=== PATIENT | female | born 1960 | race Caucasian/White ===

== ENCOUNTER 2016-09-21 09:54 | Emergency (ER) | payer BC ==
[~2016-09-21] VITALS: Ht 154.9 cm; Wt 77.0 kg
[~2016-09-21 09:54] MED LIST: ASPIRIN EC81 MG PO; CIPROFLOXACN500 MG PO; LISINOPRIL/HYDR1 TA1 PO; SIMVASTATIN40 MG PO
[2016-09-21] MEDS ORDERED: ULTRAM50 M1 PO (11:01)
[2016-09-21 11:04] VITALS: BP 109/74
== END 2016-09-21 11:16 | disposition home or self-care (01) | DRG 605 ==
LOC: ED 09:54
DX: S20.211A Contusion of right front wall of thorax, initial encounter (principal); I10 Essential (primary) hypertension; E11.9 Type 2 diabetes mellitus without complications; E78.00 Pure hypercholesterolemia, unspecified; X50.0XXA Overexertion from strenuous movement or load, initial encounter

== ENCOUNTER 2024-05-21 23:10 | Emergency (ER) | payer MEDICARE ==
[~2024-05-21] VITALS: Ht 154.9 cm; Wt 81.6 kg
[~2024-05-21 23:10] MED LIST changes: +PREDNISONE20 MG PO; +ULTRAM50 M1 PO
[2024-05-21] MEDS ORDERED: SODIUM CHLORIDE 0.9% 1,000 ML IV STA (23:38)
[2024-05-21] MEDS ORDERED: TAMSULOSIN HCL 0.4 MG CAP PO STA (23:38)
[2024-05-21] MEDS ORDERED: MORPHINE SULFATE 4 MG/ML VIAL IV STA (23:38)
[2024-05-21 23:40] VITALS: BP 189/107
[2024-05-21] MEDS ORDERED: PROMETHAZINE HCL 25 MG/ML AMP IV ONE (23:40)
[2024-05-21] MEDS ORDERED: KETOROLAC TROMETHAMINE 30 MG/ML SDV IV ONE (23:40)
[2024-05-22 00:01] VITALS: BP 163/93
[2024-05-22 00:19] LABS: BASO% 0.3 % (0-3); EOS% 0.3 % (0-8); HEMATOCRIT 38.7 % (37.0-47.0); HEMOGLOBIN 12.9 g/dl (12.0-16.0); IMMATURE GRANULOCYTES 0.2 % (0.0-5.0); LYMPH% 9.9 % (15-41); MEAN CORPUSCULAR HGB 29.3 pG CALC (26.0-32.0); MEAN CORPUSCULAR HGB CONC 33.3 g/dL CAL (32.0-36.0); MONO% 7.6 % (2-13); NEUT# 10.34 thou/uL (2.00-7.15); NEUT% 81.7 % (42-76); RED BLOOD COUNT 4.4 mill/uL (4.20-5.60)
[2024-05-22 00:27] LABS: URINE BILIRUBIN - DIPSTICK Negative (NEGATIVE); URINE BLOOD DIPSTICK Negative (NEGATIVE); URINE GLUCOSE - DIPSTICK Negative (NEGATIVE); URINE KETONE Trace mg/dL (NEGATIVE); URINE LEUK ESTERASE Negative (NEGATIVE); URINE NITRITE - DIPSTICK Negative (Negative); URINE PROTEIN - DIPSTICK Negative (NEG-TRACE); URINE SPECIFIC GRAVITY >=1.030
[2024-05-22 00:28] LABS: URINE COLOR Yellow
[2024-05-22 00:31] LABS: BILIRUBIN, TOTAL 0.9 mg/dL (0.02-1.3); CREATININE 0.8 mg/dL (0.5-1.0); POTASSIUM 3.8 mmol/l (3.5-5.1)
[2024-05-22 00:35] LABS: ALBUMIN 4.6 g/dL (3.2-5.0); TOTAL PROTEIN 8.2 g/dL (6.3-8.2)
[2024-05-22 01:00] VITALS: BP 147/86
[2024-05-22] MEDS ORDERED: VOLTAREN - GENE75 MG PO (03:12)
[2024-05-22] MEDS ORDERED: LORTAB 5/3255 MG PO (03:12)
[2024-05-22 03:26] VITALS: BP 147/81
[2024-05-22 03:28] VITALS: BP 147/81
== END 2024-05-22 03:28 | disposition home or self-care (01) ==
LOC: ED 23:10
PROVIDERS: Family Medicine
DX: R10.11 Right upper quadrant pain (principal); I10 Essential (primary) hypertension; M06.9 Rheumatoid arthritis, unspecified
CPT/HCPCS: Q9967